=== PATIENT | male | born 1975 | race African-American/Black ===

== ENCOUNTER 2020-03-06 22:53 | Emergency (ER) | payer OTHER, SELFPAY ==
--- OUTSIDE RECORDS SUMMARY | 2020-03-06 22:56 | XMS REPORT | Continuity of Care Document ---
:1975 Author Organization [facility] t Address [address] [place] [address] Care Team Providers Name Role Phone Delvis ARAUZ, E Attending Clinician Juliet ZAMBRANO, F Attending Clinician Good HORNE Attending Clinician Christopher PEARSON Attending Clinician Cholo HORNE, A Attending Clinician Quang HORNE Attending Clinician Roland BLACKBURN S Attending Clinician Doctor Unassigned, Name Attending Clinician Unavailable Kenny Azevedo Attending Clinician Quang HOREN Admitting Clinician Problems This patient has no known problems. Allergies, Adverse Reactions, Alerts This patient has no known allergies or adverse reactions. Medications This patient has no known medications. Procedures This patient has no known procedures. Encounters Start End Encounter Admission Attending Care Care Encounter Source Date/Time Date/Time Type Type Clinicians Facility Department ID 2019-12-31 2019-12-31 Patient Sharon Edmondson [id number] 00:00:00 00:00:00 Outreach E [place] [id number] [place] [id number] 2019-11-25 2019-11-25 Patient Sharon Edmondsoncasper [id number] 00:00:00 00:00:00 Outreach Santino Koroma [id number] [place] [id number] 2019-11-08 2019-11-09 Emergency [facility] [id number] 22:03:34 00:38:00 Maicol Santos [id number] [place] [id number] [place] [id number] 2019-11-06 2019-11-06 Telephone Kely Funk [id number] 00:00:00 00:00:00 Willy Laureano [id number] [place] [id number] 2019-11-01 2019-11-01 Telephone Kely White [id number] 00:00:00 00:00:00 Rhoda Laureano [id number] [facility] [id number] 2019-10-29 2019-10-30 Emergency Nithin Emmanuel [id number] 11:36:12 14:51:00 Keanu Del Rio [id number] [facility] [id number] 2019-10-28 2019-10-29 Emergency Roland [facility] [id number] 21:49:36 03:42:00 Marilyn Santos [id number] [place] 4.2.7.2.686 [place] [id number] 2019-10-28 2019-10-28 Orders Doctor REBECCA [id number] 00:00:00 00:00:00 Only UnassignedGABRIELLE [id number] [place] [facility] [id number] 2019-10-20 2019-10-20 Emergency David [facility] [id number] 19:35:35 20:15:00 Tien Santos [id number] [place] [id number] [place] [id number] 2019-10-20 2019-10-20 Orders Doctor REBECCA [id number] 00:00:00 00:00:00 Only Unassigned, GABRIELLE [id number] [place] [facility] [id number] Results This patient has no known results.
--- OUTSIDE RECORDS SUMMARY | 2020-03-06 22:56 | XMS REPORT | Summary of Care ---
:1975 Author Organization [facility] - [address] [address] Care Team Providers Name Role Phone Pcp, Patient Does Not Have A Primary Care Provider +[id number] 0-0000 Reason for Visit Reason Comments Referral/consult chp referral 2nd attempt Encounter Details Date Type Department Care Team Description 12/31/2019 Patient Outreach [facility] Sharon Edomndson RN Referral/consult [address] (chp refer ral [address]nd [place] [address] attempt) [place], [place] [address] Allergies Active Allergy Reactions Severity Noted Date Comments Bee Sting / Venom Swelling 10/29/2019 Penicillin Swelling 10/20/2019 Shellfish Derived Shortness of Breath 10/20/2019 documented as of this encounter (statuses as of 12/31/2019) Medications Medication Sig Dispensed Refills Start Date End Date Status albuterol 90 Inhale 2 Puffs 1 Inhaler 0 10/20/2019 A ctive mcg/actuation every 4 (four) inhalerIndications: hours as needed Viral syndrome for Wheezing or Shortness of Breath. ondansetron 4 mg Take 1 tablet by 12 tablet 0 10/20/2019 Active disintegrating mouth every 12 tabletIndications: (twelve) hours as Viral syndrome needed for Nausea and Vomiting (N/V). ibuprofen (MOTRIN ORAL) Take by mouth. 0 Active acetaminophen (TYLENOL) Take by mouth 0 Active 325 mg tablet every 6 (six) hours as needed. documented as of this encounter (statuses as of 12/31/2019) Active Problems Problem Noted Date Fever 10/29/2019 Obesity (BMI 30-39.9) 10/29/2019 documented as of this encounter (statuses as of 12/31/2019) Social History Tobacco Use Types Packs/Day Years Used Date Former Smoker Cigarettes, Cigars Smokeless Tobacco: Never Used Comments: quit 2 years ago, smoked for 1 5 years Alcohol Use Drinks/Week oz/Week Comments Not Currently Sex Assigned at Date Recorded Not on file Job Start Date Occupation Industry Not on file Not on file Not on file Travel History Travel Start Travel End No recent travel history available. documented as of this encounter Last Filed Vital Signs Not on filedocumented in this encounter Progress Notes Sharon Edmondson RN - 12/31/2019 11:30 AM CDTCHP referral: 2nd attempt CM left VM on pt's machine, requesting a call back to discuss [facility] enrollment. Referral will be closed unless patient calls back. Thank you for the referral. OSIEL Leger, RN, [facility] Outpatient [employer] ConnectorTransportation SupervisorNovant Health O: [phone] M: [phone] documented in this encounter Plan of Treatment Health Maintenance Due Date Last Done Comments PNEUMOCOCCAL 0-64 YEARS COMBINED SERIES (1 of 3 - 1981 PCV13) DTaP,Tdap,and Td Vaccines (1 - Tdap) 1986 INFLUENZA VACCINE (#1) 2019 documented as of this encounter Results Not on filedocumented in this encounter
[2020-03-06] MEDS ORDERED: NA CHLORIDE 0.9% 1,000 ML ONE (23:30)
[2020-03-06] MEDS ORDERED: MORPHINE 4 MG/ML SYR ONE (23:31)
[2020-03-06] MEDS ORDERED: KETOROLAC 30 MG/ML INJ ONE (23:31)
[2020-03-06 23:52] LABS: Absolute Lymphocytes (CBC) 2.2 K/uL (0.7-4.9); Basophils % 0.8 % (0-1.3); Hematocrit 43.4 % (39.6-49.0); Lymphocytes % 10.8 % (15.3-44.8); MPV 8.6 fL (7.6-11.3); RBC Red Blood Cell Count 5.43 M/uL (4.33-5.43)
[2020-03-06 23:57] LABS: Albumin 3.4 g/dL (3.4-5.0); Bilirubin Direct 0.2 mg/dL (0-0.2); Bilirubin Total 0.7 mg/dL (0.2-1.0); Potassium 4.1 mmol/L (3.5-5.1); Protein, Total 7.6 g/dL (6.4-8.2)
[2020-03-07 00:17] LABS: Platelet Estimate INCR
[2020-03-07 00:18] LABS: Blood Morphology Comment NOT SEEN (NOT SEEN); Platelets, Giant NOTED
[2020-03-07 01:12] LABS: Urine Blood 1+ (NEG); Urine Glucose NEGATIVE (NEG); Urine Protein 1+ (NEG); Urine pH 5.5 (5.0-7.0)
[2020-03-07 01:25] LABS: Urine Bacteria >50 /HPF (NONE SEEN); Urine Culture Reflex Order REFLEXED; Urine Mucus 1+ /HPF (NONE SEEN)
--- NOTE | 2020-03-07 01:41 | ER ---
Nurse's Notes [facility] Name: Jose Miguel White Age: 45 yrs Sex: Male : 1975 Arrival Date: 03/06/2020 Time: 22:54 Bed 5 Private MD: Diagnosis: Low back pain;Left Paraspinal Mass Presentation: 03/06 23:04 Chief complaint: Patient states: Reports back pain started two weeks ago, he saw his ea PCP Stacey Marrufo, a week ago, pt was treated with antibiotics for possible kidney stone. Pt reports after taking the antibiotic it caused him to have constipation. Pt reports prior to arrival he took a Dulcolax and ibuprofen. Pt reports his last bowel movement was yesterday. Coronavirus screen: Proceed with normal triage. Ebola Screen: No symptoms or risks identified at this time. Initial Sepsis Screen: Does the patient meet any 2 criteria? No. Patient's initial sepsis screen is negative. Does the patient have a suspected source of infection? No. Patient's initial sepsis screen is negative. Risk Assessment: Do you want to hurt yourself or someone else? Patient reports no desire to harm self or others. Onset of symptoms was March 06, 2020. 23:04 Method Of Arrival: Ambulatory ea 23:04 Acuity: PAL 3 ea Triage Assessment: 23:09 General: Appears uncomfortable, Behavior is calm, cooperative, appropriate for age. ea Pain: Complains of pain in low back area. Musculoskeletal: Circulation, motion, and sensation intact. Historical: - Allergies: 23:09 PENICILLINS; sg - PMHx: 23:11 None; ea - PSHx: 23:08 None; sg - Immunization history:: Adult Immunizations not up to date. - Social history:: Smoking status: Patient denies any tobacco usage or history of. Screenin:03 Abuse screen: Denies threats or abuse. Nutritional screening: No deficits noted. ea Tuberculosis screening: No symptoms or risk factors identified. Fall Risk None identified. Assessment: 23:09 General: Appears uncomfortable, Behavior is calm, cooperative, appropriate for age. ea Pain: Complains of pain in low back area. Neuro: Level of Consciousness is awake, alert, obeys commands, Oriented to person, place, time. Cardiovascular: Patient's skin is warm and dry. Respiratory: Airway is patent Respiratory effort is even, unlabored, Respiratory pattern is regular, symmetrical. GI: Reports constipation. Derm: Skin is pink, warm \T\ dry. 03/07 00:08 Reassessment: Patient and/or family updated on plan of care and expected duration. Pain ea level reassessed. Patient is alert, oriented x 3, equal unlabored respirations, skin warm/dry/pink. 00:22 Reassessment: Patient and/or family updated on plan of care and expected duration. Pain ea level reassessed. Patient is alert, oriented x 3, equal unlabored respirations, skin warm/dry/pink. Pt reports pain is decreased. 00:32 Reassessment: Pt taken to CT. ea Vital Signs: 03/06 23:04 BP 142 / 106; Pulse 118; Resp 18; Temp 98.7; Pulse Ox 100% on R/A; Weight 127.01 kg; ea Height 6 ft. 3 in. (190.50 cm); 03/07 00:10 BP 140 / 89; Pulse 112; Resp 18; Pulse Ox 100% ; ea 01:31 BP 138 / 81; Pulse 100; Resp 18; Pulse Ox 96% on R/A; mg2 03/06 23:04 Body Mass Index 35.00 (127.01 kg, 190.50 cm) ea ED Course: 03/06 22:54 Patient arrived in ED. ds1 22:54 Frank Edmonds PA is PHCP. cp 22:54 Nupur Berman MD is Attending Physician. cp 23:03 Elsy Resendiz, REGLA is Primary Nurse. ea 23:08 Triage completed. ea 23:08 Patient has correct armband on for positive identification. Bed in low position. Call ea light in reach. 23:08 Arm band placed on right wrist. Patient placed in an exam room, on a stretcher, on ea air sampling and monitoring, on pulse oximetry. 23:14 Inserted saline lock: 20 gauge in right antecubital area, using aseptic technique. mg2 Blood collected. 03/07 00:59 CT Abd/Pelvis - IV Contrast Only In Process Unspecified. EDMS 02:11 No provider procedures requiring assistance completed. IV discontinued, intact, mg2 bleeding controlled, No redness/swelling at site. Pressure dressing applied. Administered Medications: 03/06 23:15 Drug: TORadol - Ketorolac 15 mg Route: IVP; Site: right antecubital; ea 03/07 00:22 Follow up: Response: No adverse reaction 03/06 23:20 Drug: morphine 4 mg {Note: RASS 1.} Route: IVP; Site: right antecubital; ea 03/07 00:21 Follow up: Response: No adverse reaction; Pain is decreased ea 03/06 23:29 Drug: NS 0.9% 1000 ml Route: IV; Rate: 1 bolus; Site: right antecubital; ea 03/07 00:22 Follow up: Response: No adverse reaction; IV Status: Completed infusion; IV Intake: ea 1000ml 00:16 Drug: NS 0.9% 1000 ml Route: IV; Rate: 1000 ml/hr; Site: right antecubital; mg2 02:10 Not Given (Patient Refused): Hydrocodone-Acetaminophen (7.5 mg-325 mg) 1 tabs PO once; mg2 RASS on ADMIN: Combtv4, Very Agttd3, Agttd2, Rstlss1, AlertClm0, Drwsy-1, Lt Sdtn-2, Mod Sdtn-3, Dp Sdtn-4, UnArsble-5 02:10 Drug: Bactrim (160 mg-800 mg (DS) 1 tablet Route: PO; mg2 02:10 Follow up: Response: No adverse reaction; Medication administered at discharge. mg2 Intake: 00:22 IV: 1000ml; Total: 1000ml. Outcome: 01:40 Discharge ordered by . cp 02:11 Discharged to home ambulatory, with family. mg2 02:11 Condition: good 02:11 Discharge instructions given to patient, family, Instructed on discharge instructions, follow up and referral plans. medication usage, Demonstrated understanding of instructions, follow-up care, medications, Prescriptions given X 3. 02:12 Patient left the ED. mg2 Signatures: Dispatcher [employer] EDGino Rivas RN RN sg Sanford, Demi ds1 Frank Edmonds PA PA cp Antunez, Elena, RN RN ea Gardose, Michele, RN RN mg2 Corrections: (The following items were deleted from the chart) 03/06 23:09 23:08 Allergies: No Known Allergies; janusz boudreaux
--- NOTE | 2020-03-07 01:41 | EDPHYS ---
Physician Documentation [facility] Name: Jose Miguel White Age: 45 yrs Sex: Male : 1975 Arrival Date: 03/06/2020 Time: 22:54 Bed 5 Private MD: ED Physician Nupur Berman HPI: 03/06 23:28 This 45 yrs old Black Male presents to ER via Ambulatory with complaints of Back Pain, cp Constipation. 23:28 The patient presents with pain that is acute, with no known mechanism of injury. The cp symptoms are located in the low back. Onset: The symptoms/episode began/occurred 4 week(s) ago. 23:30 The pain radiates to the left groin. cp 23:30 Associated signs and symptoms: Pertinent positives: constipation, Pertinent negatives: cp abdominal pain, chest pain, dysuria, fever, incontinence, numbness, tingling, urinary retention, weakness. The problem was sustained from unknown cause. Severity of symptoms: in the emergency department the symptoms are unchanged, despite home interventions. Patient reports taking multiple courses of antibiotics recently due to pain and concern for UTI. Patient reports taking Levaquin in the past for similar symptoms and medication elevating white blood cell count, so he was changed to Bactrim which helped. Historical: - Allergies: 23:09 PENICILLINS; sg - PMHx: 23:11 None; ea - PSHx: 23:08 None; sg - Immunization history:: Adult Immunizations not up to date. - Social history:: Smoking status: Patient denies any tobacco usage or history of. ROS: 23:35 Back: Positive for pain at rest, pain with movement, of the low back area. cp 23:35 Eyes: Negative for injury, pain, redness, and discharge. cp 23:35 Constitutional: Negative for body aches, chills, fever, poor PO intake. 23:35 Neck: Negative for pain with movement, pain at rest, stiffness. 23:35 Cardiovascular: Negative for chest pain. 23:35 Respiratory: Negative for cough, shortness of breath, wheezing. 23:35 Abdomen/GI: Positive for constipation, Negative for abdominal pain, nausea, vomiting, and diarrhea, bowel incontinence. 23:35 : Negative for urinary symptoms, difficulty urinating, bladder incontinence, testicular pain 23:35 Neuro: Negative for altered mental status, headache, numbness, tingling, weakness. Exam: 23:40 Constitutional: The patient appears in no acute distress, alert, awake, non-toxic, well cp developed, well nourished, uncomfortable. 23:40 Head/Face: Normocephalic, atraumatic. cp 23:40 Eyes: Periorbital structures: appear normal, Conjunctiva: normal, no exudate, no injection, Sclera: no appreciated abnormality, Lids and lashes: appear normal, bilaterally. 23:40 ENT: External ear(s): are unremarkable, Nose: is normal, Mouth: is normal, Posterior pharynx: is normal, airway is patent. 23:40 Neck: ROM/movement: is normal, is supple, without pain, no range of motions limitations. 23:40 Chest/axilla: Inspection: normal. 23:40 Cardiovascular: Rate: tachycardic, Rhythm: regular, Edema: is not appreciated, JVD: is not appreciated. 23:40 Respiratory: the patient does not display signs of respiratory distress, Respirations: normal, no use of accessory muscles, no retractions, labored breathing, is not present. 23:40 Abdomen/GI: Inspection: abdomen appears normal, Bowel sounds: active, all quadrants, Palpation: abdomen is soft and non-tender, in all quadrants, rebound tenderness, is not appreciated, voluntary guarding, is not appreciated, involuntary guarding, is not appreciated. 23:40 Back: pain, that is severe, of the low back area and mid back area, ROM is painful, with all movement, Straight leg raises: of both lower extremities does not illicit pain. 23:40 Skin: cellulitis, is not appreciated, no rash present. 23:40 Neuro: Orientation: to person, place \T\ time. Mentation: is normal, Motor: moves all cp fours, strength is normal, Sensation: is normal, Gait: is steady, Deep tendon reflexes are 2+ (normal) in the right patellar, right Achilles, left patellar and left Achilles. Vital Signs: 23:04 BP 142 / 106; Pulse 118; Resp 18; Temp 98.7; Pulse Ox 100% on R/A; Weight 127.01 kg; ea Height 6 ft. 3 in. (190.50 cm); 03/07 00:10 BP 140 / 89; Pulse 112; Resp 18; Pulse Ox 100% ; ea 01:31 BP 138 / 81; Pulse 100; Resp 18; Pulse Ox 96% on R/A; mg2 03/06 23:04 Body Mass Index 35.00 (127.01 kg, 190.50 cm) ea MDM: 03/06 23:10 Patient medically screened. cp 23:30 Differential diagnosis: Cholelithiasis chronic back pain, ruptured disc, cp Ureterolithiasis vertebral fracture, diverticulitis. 03/07 01:40 Data reviewed: vital signs, nurses notes, lab test result(s), radiologic studies, CT cp scan, I have discussed the patient's presentation/case with the attending Emergency Department Physician; and as a result, I will discharge patient. 01:40 Counseling: I had a detailed discussion with the patient and/or guardian regarding: the cp historical points, exam findings, and any diagnostic results supporting the discharge/admit diagnosis, lab results, radiology results, the need for outpatient follow up, for definitive care, a family practitioner, a neurosurgeon, to return to the emergency department if symptoms worsen or persist or if there are any questions or concerns that arise at home. Response to treatment: the patient's symptoms have markedly improved after treatment. 03/06 23:20 Order name: Basic Metabolic Panel; Complete Time: 00:02 cp 03/07 00:02 Interpretation: Normal except: NA 135; GLUC 111; BUN 19; GFR 78. 03/06 23:20 Order name: CBC with Diff; Complete Time: 01:08 03/07 01:08 Interpretation: Normal except: WBC 20.4; MCH 26.7; JAMI% 76.5; LYM% 10.8; NEUT A 15.6; cp MNA 2.3. 03/06 23:20 Order name: Hepatic Function; Complete Time: 00:02 03/07 01:09 Interpretation: Normal except: GLOB 4.2; A/G 0.8. 03/06 23:20 Order name: Lipase; Complete Time: 00:02 03/06 23:20 Order name: Urine Microscopic Only; Complete Time: :29 cp 03/07 01:29 Interpretation: Normal except: UWBC 5-10; URBC 5-10; UBACT >50; SQEPI 5-10. 03/07 00:04 Order name: Manual Differential; Complete Time: 01:08 EDMS 03/07 01:09 Interpretation: Normal except: MONO 12; BASOS 2. cp 03/07 00:04 Order name: CT Abd/Pelvis - IV Contrast Only; Complete Time: 00:24 cp 03/07 01:03 Order name: Urine Dipstick--Ancillary (enter results); Complete Time: 01:29 ar5 03/07 01:29 Interpretation: Normal except: UBLD 1+; UPROT 1+. cp 03/07 01:30 Order name: Urine Culture EDMS 03/06 23:20 Order name: IV Saline Lock; Complete Time: 23:30 cp 03/06 23:20 Order name: Labs collected and sent; Complete Time: 23:30 cp 03/06 23:20 Order name: Urine Dipstick-Ancillary (obtain specimen); Complete Time: 01:21 cp Administered Medications: 03/06 23:15 Drug: TORadol - Ketorolac 15 mg Route: IVP; Site: right antecubital; ea 03/07 00:22 Follow up: Response: No adverse reaction 03/06 23:20 Drug: morphine 4 mg {Note: RASS 1.} Route: IVP; Site: right antecubital; ea 03/07 00:21 Follow up: Response: No adverse reaction; Pain is decreased 03/06 23:29 Drug: NS 0.9% 1000 ml Route: IV; Rate: 1 bolus; Site: right antecubital; ea 03/07 00:22 Follow up: Response: No adverse reaction; IV Status: Completed infusion; IV Intake: ea 1000ml 00:16 Drug: NS 0.9% 1000 ml Route: IV; Rate: 1000 ml/hr; Site: right antecubital; mg2 02:10 Not Given (Patient Refused): Hydrocodone-Acetaminophen (7.5 mg-325 mg) 1 tabs PO once; mg2 RASS on ADMIN: Combtv4, Very Agttd3, Agttd2, Rstlss1, AlertClm0, Drwsy-1, Lt Sdtn-2, Mod Sdtn-3, Dp Sdtn-4, UnArsble-5 02:10 Drug: Bactrim (160 mg-800 mg (DS) 1 tablet Route: PO; mg2 02:10 Follow up: Response: No adverse reaction; Medication administered at discharge. mg2 Disposition: 02:29 Co-signature as Attending Physician, Nupur Berman MD. ma2 Disposition: 03/07/20 01:40 Discharged to Home. Impression: Low back pain, Left Paraspinal Mass. - Condition is Stable. - Discharge Instructions: Back Pain, Adult, Back Exercises. - Prescriptions for Tylenol- Codeine #3 300-30 mg Oral Tablet - take 2 tablets by ORAL route every 6 hours As needed no driving while taking medication; 20 tablet. Cyclobenzaprine 10 mg Oral Tablet - take 1 tablet by ORAL route every 8 hours As needed no driving while taking medication; 20 tablet. Bactrim DS 800- 160 mg Oral Tablet - take 1 tablet by ORAL route every 12 hours for 7 days; 14 tablet. - Medication Reconciliation Form, Thank You Letter, Antibiotic Education, Prescription Opioid Use form. - Follow up: Private Physician; When: 1 - 2 days; Reason: Recheck today's complaints. - Problem is new. - Symptoms have improved. Signatures: Dispatcher [employer] [facility] Gino Prater RN RN Frank Edmonds PA PA cp Elsy Resendiz RN RN Nupur Berman MD MD ma2 Vito Navarrete RN RN mg2 Corrections: (The following items were deleted from the chart) 03/06 23:09 23:08 Allergies: No Known Allergies; [facility] 03/07 01:00 03/06 23:20 Stone Protocol+CT.RAD.BRZ ordered. [facility] 03/07 01:08 01:08 Normal except: WBC 20.4; MCH 26.7; JAMI% 76.5; LYM% 10.8; NEUT A 15.6. cp cp 01:41 01:40 03/07/2020 01:40 Discharged to Home. Impression: Low back pain. Condition is cp Stable. Forms are Medication Reconciliation Form, Thank You Letter, Antibiotic Education, Prescription Opioid Use. Follow up: Private Physician; When: 1 - 2 days; Reason: Recheck today's complaints. Problem is new. Symptoms have improved. cp 02:12 01:41 03/07/2020 01:40 Discharged to Home. Impression: Low back pain; Left Paraspinal mg2 Mass. Condition is Stable. Forms are Medication Reconciliation Form, Thank You Letter, Antibiotic Education, Prescription Opioid Use. Follow up: Private Physician; When: 1 - 2 days; Reason: Recheck today's complaints. Problem is new. Symptoms have improved. cp 23:28 03/06 23:30 Patient reports taking multiple courses of antibiotics recently due to pain cp and concern for UTI. cp
[2020-03-07] MEDS ORDERED: SMZ./TMP. 800/160 MG TABLET ONE (02:06)
[2020-03-07] MEDS ORDERED: HYDROCODONE/APAP 7.5/325 MG TAB ONE (02:07)
[2020-03-07 02:18] VITALS: TEMP 98.7
[2020-03-07 02:21] VITALS: BP 138/81; O2SAT 96
--- NOTE | 2020-03-07 11:01 | RAD REPORT ---
EXAM DESCRIPTION: CT - Abdomen Pelvis W Contrast - 03/07/2020 3:24 am CLINICAL HISTORY: 45 years Male lower back pain TECHNIQUE: Contiguous axial images obtained through the abdomen and pelvis following intravenous con trast administration. Coronal and sagittal reformatted images provided. This CT exam was performed according to our departmental dose-optimization program, which includes on e or more of the following dose reduction techniques: automated exposure control, adjustment of the m A and/or kV according to patient size, and/or use of iterative reconstruction technique. COMPARISON: No prior exams provided for comparison. FINDINGS: Calcified granuloma in the right lower lobe. The lung bases are otherwise clear. There is bulky mesenteric lymphadenopathy in the central abdomen. There is also moderate periportal, celiac, upper periaortic, external iliac, and bilateral inguinal lymphadenopathy. There is a small am ount of free fluid in the small bowel mesentery and pelvis. The liver, biliary tree, gallbladder, pancreas, spleen, adrenal glands, kidneys, and urinary bladder are normal. There is no bowel inflammation, obstruction, or free intraperitoneal air. The appendix is normal. Atherosclerosis without abdominal aortic aneurysm or dissection. There is a bulky left paraspinal soft tissue mass at the level of L3, measuring approximately 6.5 x 6 .4 x 6.3 cm. This has destroyed the left L3 transverse process and articular facets. Difficult to com pletely exclude encroachment into the left lateral aspect of the central canal. No other visualized destructive osseous lesion. There is dextroconvex curvature of the lumbar spine c entered at this level. IMPRESSION: Bulky abdominal and pelvic lymphadenopathy with a small amount of peritoneal free fluid. 6.5 cm left paraspinal mass at the level of L3 with osseous destruction and dextroconvex curvature. D ifficult to completely exclude encroachment into the left lateral aspect of the central canal. Differential diagnosis for these findings includes metastatic disease and lymphoma. Consider biopsy. Also consider contrast-enhanced MRI of the lumbar spine to evaluate possible nerve root and central c anal involvement. Electronically signed by: Елена Mahmood MD 03/07/2020 1:15 AM CDT Due to temporary technical issues with the PACS/Fluency reporting system, reports are being signed by the in house radiologist without review as a courtesy to ensure prompt reporting. The interpreting r adiologist is fully responsible for the content of the report.
== END 2020-03-07 02:12 | disposition home or self-care (01) ==
LOC: ER 22:53
DX: G95.9 Disease of spinal cord, unspecified (principal); Z88.0 Allergy status to penicillin
CPT/HCPCS: 36415; 74177; 80048; 80076; 81003; 81015; 83690; 85025; 87086; 87088; 96361; 96374; 96375; 99284; J7030; Q9967